=== PATIENT | male | born 1960 | race Caucasian/White ===

== ENCOUNTER 2019-07-02 12:16 | Emergency (ER) | payer MEDICARE, SELFPAY ==
[2019-07-02 12:17] VITALS: BP 156/87; PULSE 90; RESP 16; TEMP 36.7; O2SAT 98; BMI 30.5
[2019-07-02] MEDS: Ondansetron 4 MG/2 ML Vial IV (12:52)
[2019-07-02] MEDS: 0.9% Normal Saline 1,000 ML 1000 ML IV (12:52)
--- NOTE | 2019-07-02 12:52 | ED.VIS.GI ---
History of Present Illness Informant: Patient, Family - Abdominal Pain/Flank Pain Onset: Weeks - 1 week Context: Gradual Onset Timing: Continuous Quality: Burning, Sharp Location: Epigastric Current Severity: Severe Maximum Severity: Severe Worsened by: Food Relieved by: Remaining Still - Nausea/Vomiting/Emesis GI Symptom: Nausea, Vomiting Onset: Today Quality: Nonbilious Severity: Severe Episodes: 2 - Diarrhea/Melena/Hematochezia GI Symptom: Negative for: Diarrhea, Melena, Hematochezia Associated Symptoms: Negative for: Dysuria, Frequency, Hematuria, Urgency Narrative: 58-year-old male history of GERD, diabetes, hypertension, hyperlipidemia, presents to the emergency department with epigastric abdominal pain nausea and vomiting. He has been dealing with the symptoms for over a week. He was seen by his family doctor yesterday and started on omeprazole. He has not had improvement. No coffee-ground emesis or hematemesis. No melena or hematochezia. No fevers or chills. No chest pain or shortness of breath. No urinary symptoms. He is not on blood thinners. He is never had an endoscopy or colonoscopy. No history of abdominal surgery. Prior similar symptoms: Yes Recent Illness/Hospitalization: No <Celio Saeed - Last Filed: 07/02/19 16:18> <Uche Justin - Last Filed: 07/02/19 17:25> Chief Complaint: Nausea/Vomiting Past Medical History Prior records reviewed: Yes Past Medical History: - - GERD, type 2 diabetes mellitus, hypertension, hyperlipidemia Surgical History: no surgical history Lives: With Family Smoking Status: Former smoker <Celio Saeed - Last Filed: 07/02/19 16:18> <Uche Justin - Last Filed: 07/02/19 17:25> - Allergies and Home Meds Allergies/Adverse Reactions: Allergies No Known Allergies Allergy (Verified 07/02/19 12:17) Primary Care Physician: Minal Rios MD [STAFF PHYSICIAN] - As soon as possible Review of Systems All systems negative except as indicated General: Denies: Chills, Fever Cardiovascular: Denies: Chest pain Respiratory: Denies: Dyspnea Gastrointestinal: Reports: Abdominal pain, Nausea, Vomiting. Denies: Melena, Hematochezia <Celio Saeed - Last Filed: 07/02/19 16:18> Physical Exam Vital Signs/Narrative: Vital Signs Temp Pulse Resp BP Pulse Ox 07/02/19 12:17 98.0 F 90 16 156/87 H 98 Inital Vital Signs reviewed: Yes General: Well nourished, Well developed, No Acute Distress Head: Normocephalic, Atraumatic Eyes: Perrl, EOMI ENT: Moist mucous membranes Neck: Supple, Nontender Cardiovascular: Regular rate, Regular rhythm Respiratory: No distress, CTA bilaterally, Chest nontender Abdomen: Soft, Nontender, Nondistended, Normal bowel sounds, No masses Back: Nontender, Normal Inspection Extremities: Nontender, No edema Skin: Normal color, No rash Neurological: Alert, Oriented x3 <Celio Saeed - Last Filed: 07/02/19 16:18> Vital Signs/Narrative: Vital Signs Temp Pulse Resp BP Pulse Ox 07/02/19 15:38 85 17 191/100 H 97 07/02/19 12:17 98.0 F 90 16 156/87 H 98 <Uche Justin - Last Filed: 07/02/19 17:25> Diagnostic/Tx/Re-eval CT: Abdomen and Pelvis - Medical Decision Making Patient comes to the emergency department with epigastric pain nausea and vomiting. He has a history of GERD. He was given IV fluids and Zofran as well as IV Protonix. His laboratory work-up was remarkable for a potassium of 2.9 and a white blood cell count of 14. We did obtain a CT scan of the abdomen and pelvis with IV contrast. It shows no acute findings. He feels improved after medication. Repeat abdominal exam soft and nontender. He is able to tolerate by mouth. He was given potassium replacement. We discussed proper use of his omeprazole. We discussed the importance of following up with his family doctor and he might need an outpatient endoscopy. We discussed improving his diet to also help to improve his symptoms. He will monitor for symptoms of bleeding he will take his medications as prescribed and follow-up as directed or return to the emergency department for worsening symptoms which were discussed. Laboratory Tests 07/02/19 07/02/19 Range/Units 12:50 12:50 WBC 14.1 H (4.4-11.0) K/mm3 RBC 4.91 (4.6-6.2) M/mm3 Hgb 14.9 (13.0-16.5) g/dL Hct 42.6 (40-54) % MCV 86.8 (80-94) fL MCH 30.3 (27.0-32.0) pg MCHC 35.0 (32-36) g/dL RDW Std Deviation 38.3 (35.1-43.9) fl RDW Coeff of Zeenat 11.9 (11.6-14.6) % Plt Count 255 (150-450) K/mm3 MPV 10.4 (6.2-12.0) fl Immature Gran % (Auto) 0.400 (0.0-0.9) % Neut % (Auto) 75.8 H (47-70) % Lymph % (Auto) 12.8 L (19-41) % [place] % (Auto) 9.6 (0-10) % Eos % (Auto) 0.9 (0-5) % Baso % (Auto) 0.5 (0-1) % Absolute Neuts (auto) 10.7 H (2.0-7.7) X10^3/uL Absolute Lymphs (auto) 1.81 (0.83-4.51) X10^3/uL Nucleated RBC % 0 (0-5) % Sodium 132 L (136-145) mmol/L Potassium 2.9 L (3.5-5.1) mmol/L Chloride 95 L (98-107) mmol/L Carbon Dioxide 29.0 (21.0-32.0) mmol/L Anion Gap 8 (5-15) BUN 18 (7-18) mg/dL Creatinine 0.72 (0.70-1.30) mg/dL Estim Creat Clear Calc 119.75 ml/min Est GFR (MDRD) Af Amer 143 (>60) mL/min Est GFR (MDRD) Non-Af 118 (>60) mL/min BUN/Creatinine Ratio 25.0 H (10-20) RATIO Glucose 188 H (74-106) mg/dL Calcium 8.7 (8.5-10.1) mg/dL Total Bilirubin 0.60 (0.20-1.00) mg/dL AST 10 L (15-37) U/L ALT 22 (16-61) U/L Alkaline Phosphatase 93 (45-117) U/L Total Protein 7.4 (6.4-8.2) g/dL Albumin 3.3 (3.2-5.0) g/dL Globulin 4.1 (2.2-4.2) g/dL Albumin/Globulin Ratio 0.8 L (0.9-2.4) RATIO Lipase 40 L (73-393) U/L <Celio Saeed - Last Filed: 07/02/19 16:18> - Medical Decision Making I supervised the PA and have performed my own pertinent history and physical. Results and treatment plan were discussed. HPI: Patient reports that he has heartburn. States that he has been dealing this for approximately 1 week. It became acutely worse 6 days ago when he woke up in the morning. It is a constant burning pain. Reports he has vomited multiple times. He denies any blood in his emesis. No diarrhea. No melena or hematochezia. No fever or chills. No chest pain or shortness of breath. PE: Abdomen: Soft, mild epigastric tenderness to palpation, normal bowel sounds, no guarding, rebound, or peritoneal signs. Cardiovascular: Regular rate and rhythm with no murmur. Respiratory: No respiratory distress. Clear to auscultation bilaterally. Emergency Department course: Patient was treated with Zofran and a GI cocktail. He was given a liter of normal saline. Is given potassium p.o. Treatment Plan: I had a prolonged discussion of the possible etiology of his symptoms. He will have Zantac added to his omeprazole. He will also be placed on Carafate. He is instructed to follow-up with Dr. Dangelo for further evaluation and treatment. I suspect that he has gastritis versus an ulcer. Return to the emergency department for any worsening symptoms. This note was generated with [employer] software. It may contain incorrect words, spelling, and punctuation that were not noted in review of the chart prior to signing. <Uche Justin - Last Filed: 07/02/19 17:25> ED Disposition <Celio Saeed - Last Filed: 07/02/19 16:18> <Uche Justin - Last Filed: 07/02/19 17:25> - Plan for ED Patient: Diagnosis: Abdominal pain, GERD (gastroesophageal reflux disease), Hypokalemia Instructions: Lifestyle Changes for Controlling GERD, Medications for GERD, GASTRITIS vs. ULCER Prescriptions: Sucralfate [Carafate] 1 gm PO 4X/DAY #60 tab Prescription Printed Ranitidine [Zantac] 300 mg PO DAILY #30 tab Prescription Printed Ondansetron [Zofran Odt] 4 mg PO Q8H PRN PRN #10 tab PRN Reason: Nausea Prescription Printed Referrals: Minal Rios MD [STAFF PHYSICIAN] - As soon as possible
[2019-07-02 12:58] LABS: Absolute Lymphocyte Count 1.81 X10^3/uL (0.83-4.51); Absolute Neutrophil Count 10.7 X10^3/uL (2.0-7.7); Basophil# 0.07 X10^3/uL; Basophil% 0.5 % (0-1); Eosinophil# 0.13 X10^3/uL; Eosinophils% 0.9 % (0-5); Hematocrit 42.6 % (40-54); Hemoglobin 14.9 g/dL (13.0-16.5); Lymphocyte # 1.81 X10^3/ul (4.0); Lymphocyte % 12.8 % (19-41); Mean Corpuscular Hgb 30.3 pg (27.0-32.0); Mean Corpuscular Volume 86.8 fL (80-94); Mean Platelet Vol. 10.4 fl (6.2-12.0); Monocyte# 1.36 X10^3/uL; Monocyte% 9.6 % (0-10); NRBC Flagged by Analyzer 0 % (0-5); Neutrophil # 10.69 X10^3/uL (2.7-7.7); Neutrophil % 75.8 % (47-70); Platelet Count 255 K/mm3 (150-450); RBC Distribution Width CV 11.9 % (11.6-14.6); RBC Distribution Width SD 38.3 fl (35.1-43.9); Red Blood Count 4.91 M/mm3 (4.6-6.2); White Blood Count 14.1 K/mm3 (4.4-11.0)
[2019-07-02 13:14] LABS: ALB/GLOB Ratio 0.8 RATIO (0.9-2.4); AST(SGOT) 10 U/L (15-37); Alanine Aminotransfer ALT/SGPT 22 U/L (16-61); Albumin, Serum 3.3 g/dL (3.2-5.0); Alkaline Phosphatase 93 U/L (45-117); Anion Gap 8 (5-15); BUN 18 mg/dL (7-18); Calcium,Total 8.7 mg/dL (8.5-10.1); Chloride 95 mmol/L (98-107); Creatinine, Serum 0.72 mg/dL (0.70-1.30); EST Glomerular Filtration Rate 118 mL/min (>60); Est Glom Filt Rate - Afr Amer 143 mL/min (>60); Estimated Creatinine Clearance 119.75 ml/min; Globulin 4.1 g/dL (2.2-4.2); Glucose 188 mg/dL (74-106); Lipase 40 U/L (73-393); Potassium 2.9 mmol/L (3.5-5.1); Protein, Total 7.4 g/dL (6.4-8.2); Sodium Level 132 mmol/L (136-145)
--- NOTE | 2019-07-02 13:49 | CT_ITS ---
STUDY: CT ABDOMEN AND PELVIS WITH CONTRAST REASON FOR EXAM: Male, 58 years old. Abdominal pain x5 days. RADIATION DOSAGE (If Supplied By Facility): CTDIvol = ( 15.26 ) mGy, DLP = ( 1368.94 ) mGycm TECHNIQUE: Transaxial images were obtained from the dome of the diaphragm to the symphysis pubis without oral contrast. 100 IV Isovue 370 was administered. Sagittal and coronal images were reconstructed. Individualized dose optimization techniques were used for this CT. COMPARISON: None. FINDINGS: The visualized lung bases are unremarkable. The visualized portions of the heart are within normal limits. Normal liver. There is a solitary gallstone. Normal spleen. Normal pancreas. Normal bilateral adrenal glands. There is a right renal cyst. There is an indeterminate calcification within the lower pole of the left kidney that may be vascular or may reflect a punctate nonobstructing calculus. Normal visualized stomach. Normal small intestine. There are scattered diverticula throughout the colon. The appendix is visualized and appears normal. There are scattered peripheral calcifications of the abdominal aorta consistent with atherosclerosis. Normal inferior vena cava. Normal retroperitoneum. Normal urinary bladder. Normal abdominal wall. There are diffuse degenerative changes of the visualized lumbar spine. CT/Abdomen/Pelvis W IV Cont ONLY IMPRESSION: Cholelithiasis. Colonic diverticulosis. Atherosclerosis. Degenerative changes of the lumbar spine. Electronically Signed: Ellen Villanueva MD at 14:39 EDT Tel , Service support ,
[2019-07-02] MEDS: Potassium Chloride 10mEq/100mL 10 MEQ/100 ML IV.SOLN. 100 MEQ IV BOLUS ×2 (15:28→16:28)
[2019-07-02] MEDS: Mag Hydrox/Al Hydrox/Simeth 30 ML UDC PO (15:35)
[2019-07-02 15:38] VITALS: BP 191/100; PULSE 85; RESP 17; O2SAT 97
[2019-07-02 17:17] VITALS: BP 175/107; PULSE 83; RESP 16; O2SAT 98
[2019-07-02 17:38] VITALS: BP 175/107; PULSE 74; RESP 18; O2SAT 99
== END 2019-07-02 17:39 | disposition home or self-care (01) ==
LOC: ED 12:56
PROVIDERS: Emergency Provider Physician Assistant Medical; Family Provider Preventive Medicine Occupational Medicine; PCP Preventive Medicine Occupational Medicine
DX: R10.13 Epigastric pain (principal); K21.9 Gastro-esophageal reflux disease without esophagitis; E87.6 Hypokalemia; R11.2 Nausea with vomiting, unspecified; E11.9 Type 2 diabetes mellitus without complications; I10 Essential (primary) hypertension; E78.5 Hyperlipidemia, unspecified; Z79.84 Long term (current) use of oral hypoglycemic drugs; Z79.82 Long term (current) use of aspirin; Z79.899 Other long term (current) drug therapy; Z87.891 Personal history of nicotine dependence
CPT/HCPCS: 74177; 80053; 83690; 85025; 99283; J7030; Q9967; J2405